=== PATIENT | male | born 1955 | race Caucasian/White ===

== ENCOUNTER 2023-08-11 07:02 | Day surgery (SDC) | payer OTHER ==
[~2023-08-11] VITALS: Ht 190.5 cm; Wt 130.5 kg
[2023-08-11] VITALS (14 sets, daily range): BP systolic 81–141; BP diastolic 60–95
[~2023-08-11 07:02] MED LIST: AMOCLA875 PO; CELE400 PO; LEVSOD100 PO; Lisinopril-Hct1 EAC4 PO; Mobic15 MG PO; Norco 5-325 Ta1 EACH PO
[2023-08-11] MEDS ORDERED: ASPI81CH PO (10:18)
--- NOTE | 2023-08-11 11:15 | NUR ---
ARRIVAL TO SURGICAL UNIT VIA HOSPITAL BED. ALERT & PLEASANT. ASSESSMENT CHARTED. DENIES N/V. SNACKS & WATER GIVEN.
[2023-08-11] MEDS ORDERED: Percocet 5-3251 EACH PO (12:32)
--- NOTE | 2023-08-11 19:55 | NUR ---
SHIFT SUMMARY PT HAS DONE WELL POST OP. EATING, DRINKING, & VOIDING. PAIN WELL CONTROLLED. UNFORTUNATLY NO THERAPY WAS AVAILABLE THIS AFTERNOON AFTER SPINAL WORE OFF, BUT DID GET UP w/ NURSING STAFF.
[2023-08-12 04:19] VITALS: BP 129/93
[2023-08-12 05:59] LABS: BASOPHILS ABSOLUTE AUTO 0.02 K/mm3 (0.00-0.23); BASOPHILS PERCENT AUTO 0 % (0-2); EOSINOPHILS ABSOLUTE AUTO 0.08 K/mm3 (0.00-0.68); EOSINOPHILS PERCENT AUTO 1 % (0-6); Hematocrit 35.3 % (37.0-53.0); Hemoglobin 11.7 g/dL (13.5-17.5); IMMATURE GRAN ABSOLUTE AUTO 0.04 K/mm3 (0.00-0.10); IMMATURE GRAN PERCENT AUTO 0 % (0-1); LYMPHOCYTES ABSOLUTE AUTO 1.98 K/mm3 (0.84-5.20); LYMPHOCYTES PERCENT AUTO 20 % (21-46); MONOCYTES ABSOLUTE AUTO 0.79 K/mm3 (0.16-1.47); MONOCYTES PERCENT AUTO 8 % (4-13); Mean Corpuscular HGB 30.5 pg (26.0-34.0); Mean Corpuscular HGB Conc 33.1 g/dL (31.5-36.5); Mean Corpuscular Volume 92 fL (80-100); Mean Platelet Volume 11.8 fL (9.1-12.4); NEUTROPHILS ABSOLUTE AUTO 6.98 K/mm3 (1.96-9.15); NEUTROPHILS PERCENT AUTO 71 % (41-73); Platelet Count 148 K/mm3 (150-400); RDW Coefficient Variation 13.7 % (11.7-14.2); RDW Standard Deviation 46.5 fL (35.1-46.3); Red Blood Cell Count 3.83 M/mm3 (4.30-5.90); White Blood Cell Count 9.89 K/mm3 (4.00-11.30)
[2023-08-12 06:27] LABS: Bun/Creatinine Ratio 28.2 (12.0-20.0); Calcium, Blood 8.7 mg/dL (8.5-10.1); Creatinine, Blood 1.1 mg/dL (0.60-1.20); Potassium, Blood 4.2 mmol/L (3.5-5.5)
--- NOTE | 2023-08-12 06:53 | NUR ---
SHIFT SUMMARY NOC. PT POD 1 FOR RIGHT TOTAL KNEE. PT A/O X4. AQUACEL IS C/D/I WITH SCANT SEROSANG DRAINAGE. PT AMBULATING TO THE BR WITH FWW, GAIT BELT AND SBA. PT TOLERATING PO AND VOIDING URINE. PT MEDICATED FOR PAIN WITH RELIEF OF SYMPTOMS. PT RESTED WITH EYES CLOSED AND CALL LIGHT IN REACH.
[2023-08-12 07:35] VITALS: BP 130/84
--- NOTE | 2023-08-12 09:05 | NUR ---
DISCHARGE PT HAS CLEARED THERAPY. PAIN WELL CONTROLLED. EATING, DRINKING, & VOIDING WELL. DRSGS, SCRIPT, & POLAR PACK SENT w/ PT. ESCORTED OUT VIA W/C.
--- NOTE | 2023-08-13 11:52 | NUR ---
08/13/23 1152 Wanda Mcclain VERIFICATIONS: EDIT CHART.
== END 2023-08-12 09:20 | disposition home or self-care (01) ==
LOC: ORSCMMR 07:02 → ORD 08:15 → SURS 11:08 → ORD 12:30 → ORSCMMR 08-12 09:20
PROVIDERS: Orthopaedic Surgery
PROC: 0SRC0JA Replacement of Right Knee Joint with Synthetic Substitute, Uncemented, Open Approach (ICD-10-PCS; principal; 2023-08-11 08:15)
DX: M17.11 Unilateral primary osteoarthritis, right knee (principal); I10 Essential (primary) hypertension; E03.9 Hypothyroidism, unspecified; Z79.899 Other long term (current) drug therapy
CPT/HCPCS: 36415; 73560-RT; 80048; 85025; 94760; 97110; 97162; A9270; C1776; J0171; J0690; J0735; J1100; J1885; J2250; J2371; J2405; J2704; J2795; J3010; J7120

== ENCOUNTER 2023-11-10 08:36 | Day surgery (SDC) | payer OTHER ==
[~2023-11-10] VITALS: Ht 193 cm; Wt 135.0 kg
[2023-11-10] VITALS (18 sets, daily range): BP systolic 102–135; BP diastolic 64–83
[~2023-11-10 08:36] MED LIST changes: +ASPI81CH PO; +IBUP800 PO; +Percocet 5-3251 EACH PO
[2023-11-10] MEDS ORDERED: Magnesium Hydroxide Conc 10 ML UDC PO PRN (09:40)
[2023-11-10] MEDS ORDERED: Lactated Ringer's 1,000 ML IV SCH ×2 (09:40→10:00)
[2023-11-10] MEDS ORDERED: DiphenhydrAMINE HCL 25 MG Cap PO PRN (09:40)
[2023-11-10] MEDS ORDERED: HYDROmorphone HCl/Pf 1MG SYR IV PRN (09:40)
[2023-11-10] MEDS ORDERED: Bisacodyl 10 MG Supp PR PRN (09:45)
[2023-11-10] MEDS ORDERED: Ondansetron HCl 2 MG / ML 2ML Vial IV PRN (09:45)
[2023-11-10] MEDS ORDERED: Metoclopramide HCl 5MG / ML 2ML Vial IV PRN (09:45)
[2023-11-10] MEDS ORDERED: Promethazine HCl 25 MG Tab PO PRN (09:45)
[2023-11-10] MEDS ORDERED: OxyCODONE HCL 5 MG TAB PO PRN ×2 (09:45→09:50)
[2023-11-10] MEDS ORDERED: CeFAZolin Sodium 3,000 MG in NS 100 ML IV SCH ×2 (10:00→20:00)
[2023-11-10] MEDS ORDERED: OxyCODONE HCL 10 MG TABCR PO SCH (10:00)
[2023-11-10] MEDS ORDERED: Tranexamic Acid 100 ML IV SCH (10:00)
[2023-11-10] MEDS ORDERED: Chlorhexidine Mouth Care 15 ML UDC MT SCH (10:00)
[2023-11-10] MEDS ORDERED: Acetaminophen 500 MG Tab PO SCH ×2 (10:00→16:00)
[2023-11-10] MEDS ORDERED: Ropivacaine 0.5% HCl/Pf 123.125 MG,EPINEPHrine HCL 0.25 MG,Ketorolac Tromethamine 15 MG... INFIL SCH (10:00)
[2023-11-10] MEDS ORDERED: Midazolam HCl 1MG / ML 2ML Vial ONE ×2 (11:48→12:04)
[2023-11-10] MEDS ORDERED: FentaNYL Citrate 50 MCG/ML 2 ML Injection ONE (11:48)
[2023-11-10] MEDS ORDERED: propofoL 60 ML IV ONE (12:09)
[2023-11-10] MEDS ORDERED: ePHEDrine Sulfate 50 MG/ML 1ML Injection ONE (12:28)
[2023-11-10] MEDS ORDERED: propofoL 20 ML IV ONE (12:57)
--- NOTE | 2023-11-10 16:43 | NUR ---
SHIFT SUMMARY PT IS SITTING UP IN BED WIDE AWAKE. SPOUSE AT BEDSIDE. VSS. A&OX4. ROOM AIR. PT ARRIVED IN ROOM AT 1446 S/P L TOTAL KNEE. HE HAD A SPINAL AND HAS REGAINED SENSATION. HE CAN WIGGLE HIS TOES AND LIFT BOTH LEGS. REPORTS PAIN IS AT A 0 OUT OF 10 CURRENTLY. HE HAS AN AQUACEL DRESSING AND AN JASE WRAP IN PLACE. DRESSING IS C/D/I. POLAR PACK IN PLACE. HE IS TOLERATING A REGULAR DIET W/O COMPLAINTS OF NAUSEA. PT VOIDED IN PACU. HE HAS NOT BEEN OUT OF BED THIS SHIFT. HE HAS HAD NO ACUTE EVENTS.
[2023-11-10] MEDS ORDERED: Ketorolac Tromethamine 15mg Vial IV SCH (18:00)
[2023-11-10] MEDS ORDERED: Docusate Sodium 100 MG Cap PO SCH (21:00)
[2023-11-11 00:29] VITALS: BP 117/90
[2023-11-11 05:12] VITALS: BP 123/92
[2023-11-11 05:58] LABS: BASOPHILS ABSOLUTE AUTO 0.02 K/mm3 (0.00-0.23); BASOPHILS PERCENT AUTO 0 % (0-2); EOSINOPHILS ABSOLUTE AUTO 0.16 K/mm3 (0.00-0.68); EOSINOPHILS PERCENT AUTO 3 % (0-6); Hematocrit 37.1 % (37.0-53.0); Hemoglobin 12.1 g/dL (13.5-17.5); IMMATURE GRAN ABSOLUTE AUTO 0.01 K/mm3 (0.00-0.10); IMMATURE GRAN PERCENT AUTO 0 % (0-1); LYMPHOCYTES ABSOLUTE AUTO 1.32 K/mm3 (0.84-5.20); LYMPHOCYTES PERCENT AUTO 21 % (21-46); MONOCYTES ABSOLUTE AUTO 0.58 K/mm3 (0.16-1.47); MONOCYTES PERCENT AUTO 9 % (4-13); Mean Corpuscular HGB 29.7 pg (26.0-34.0); Mean Corpuscular HGB Conc 32.6 g/dL (31.5-36.5); Mean Corpuscular Volume 91 fL (80-100); Mean Platelet Volume 12.4 fL (9.1-12.4); NEUTROPHILS ABSOLUTE AUTO 4.28 K/mm3 (1.96-9.15); NEUTROPHILS PERCENT AUTO 67 % (41-73); Platelet Count 147 K/mm3 (150-400); RDW Coefficient Variation 14.1 % (11.7-14.2); RDW Standard Deviation 47.5 fL (35.1-46.3); Red Blood Cell Count 4.08 M/mm3 (4.30-5.90); White Blood Cell Count 6.37 K/mm3 (4.00-11.30)
--- NOTE | 2023-11-11 06:35 | NUR ---
POD 1 S/P L TKA. PT VSS T/O NIGHT. DRESSING CDI. PULSES AND CAP REFILL WNL, PT DENIED N/T. PAIN MGD W/10 MG OXYCODONE +SCHEDULED MEDS W/REP RELIEF. PT GALEN PO, DENIED N/V. PT HAD 2 SMALL VOIDS, BLADDER SCAN THIS AM 340, PT DECLINED STRAIGHT CATH AT THIS TIME, REQ TRY TO VOID AFTER DRINKS CUP OF COFFEE. PT AMB IN HALLS, GALEN WELL. PLAN TO MOBILIZE W/PT AND DC HOME WHEN CLEARED.
[2023-11-11 06:42] LABS: Bun/Creatinine Ratio 24.3 (12.0-20.0); Calcium, Blood 9.1 mg/dL (8.5-10.1); Creatinine, Blood 1.03 mg/dL (0.60-1.20); Potassium, Blood 4.3 mmol/L (3.5-5.5)
[2023-11-11 07:05] VITALS: BP 116/51
--- NOTE | 2023-11-11 08:44 | NUR ---
A&OX4, REPORTS PAIN IS TOLERABLE, PT STATES HE HAD SOME URINARY RETENTION LAST NIGHT, STANDBY ASSIST TO THE BATHROOM TO VOID, PT VOIDED 100ML DARK DARNELL URINE, DENIES ANY NEED FOR PAIN MEDS AT THIS TIME, CONT. TO MONITOR FOR ANY CHANGES.
[2023-11-11] MEDS ORDERED: Aspirin 81 MG Chew PO SCH (09:00)
--- NOTE | 2023-11-11 09:31 | NUR ---
WORKING WITH PHYSICAL THERAPY.
[2023-11-11] MEDS ORDERED: Aspir 8181 MG PO (09:40)
--- NOTE | 2023-11-11 10:58 | NUR ---
PT CLEARED PT, DC'D HOME, DC INSTRUCTIONS GIVEN, VERBALIZED UNDERSTANDING, IV DC'D, CATH INTACT.
== END 2023-11-11 10:51 | disposition home or self-care (01) ==
LOC: ORSCMMR 08:36 → ORD 09:15 → ORSCMMR 10:00 → ORD 10:00 → SURS 14:45 → ORSCMMR 22:51
PROVIDERS: Orthopaedic Surgery
PROC: 0SRD0JA Replacement of Left Knee Joint with Synthetic Substitute, Uncemented, Open Approach (ICD-10-PCS; principal; 2023-11-10 10:00)
DX: M17.12 Unilateral primary osteoarthritis, left knee (principal); Z96.651 Presence of right artificial knee joint; I10 Essential (primary) hypertension; E03.9 Hypothyroidism, unspecified; Z79.899 Other long term (current) drug therapy; E66.9 Obesity, unspecified; Z68.36 Body mass index [BMI] 36.0-36.9, adult
CPT/HCPCS: 36415; 73560-LT; 80048; 85025; 97110; 97116; 97162; A9270; C1776; J0171; J0690; J0735; J1885; J2250; J2704; J2795; J3010; J7120